=== PATIENT | male | born 1955 | race Caucasian/White ===

== ENCOUNTER 2016-11-29 10:42 | Outpatient (CLI) | payer OTHER ==
[2016-11-29 11:22] LABS: eGFR (African) > 60; eGFR (Non-African) > 60
== END 2016-11-29 10:43 ==
LOC: LAB 10:42
PROVIDERS: ATTEND Family Medicine
DX: E11.9 Type 2 diabetes mellitus without complications (principal); L60.3 Nail dystrophy; I10 Essential (primary) hypertension; E78.00 Pure hypercholesterolemia, unspecified
CPT/HCPCS: 36415; 80053; 80061; 83036

== ENCOUNTER 2016-12-17 15:01 | Outpatient (CLI) | payer OTHER | END 2016-12-17 15:02 | LOC: POD 15:01 | PROVIDERS: ATTEND Podiatrist | DX: E11.42 Type 2 diabetes mellitus with diabetic polyneuropathy (principal); G60.3 Idiopathic progressive neuropathy; B35.1 Tinea unguium | CPT/HCPCS: 99213 ==

== ENCOUNTER 2017-03-21 10:52 | Outpatient (CLI) | payer OTHER ==
[2017-03-21 11:36] LABS: eGFR (African) > 60; eGFR (Non-African) > 60
== END 2017-03-21 10:53 ==
LOC: LAB 10:52
PROVIDERS: ATTEND Family Medicine
DX: E11.9 Type 2 diabetes mellitus without complications (principal); I10 Essential (primary) hypertension
CPT/HCPCS: 36415; 80048; 83036

== ENCOUNTER 2017-11-21 08:26 | Outpatient (CLI) | payer OTHER ==
[2017-11-24 13:54] LABS: BASO % 0.4; EOS % 1.9; MCH. 28.1; MCV 84.3; MONOCYTE % 7.4; MONOCYTE ABS # 0.54; PLATELET COUNT 178
[2017-11-24 13:55] LABS: TOTAL PROTEIN 7.4
== END 2017-11-21 08:27 ==
LOC: LAB 08:26
PROVIDERS: ATTEND Family Medicine
DX: E11.9 Type 2 diabetes mellitus without complications (principal); E78.00 Pure hypercholesterolemia, unspecified; I10 Essential (primary) hypertension
CPT/HCPCS: 36415; 80053; 80061; 83036; 85025

== ENCOUNTER 2018-03-27 13:19 | Outpatient (CLI) | payer OTHER ==
[2018-03-27 14:41] LABS: eGFR (Non-African) > 60
== END 2018-03-27 14:24 ==
LOC: LABRHC 13:19
PROVIDERS: ATTEND Family Medicine
DX: E11.9 Type 2 diabetes mellitus without complications (principal)
CPT/HCPCS: 80053; 83036

== ENCOUNTER 2018-05-16 11:27 | Outpatient (CLI) | payer OTHER ==
[2018-05-16 12:15] LABS: eGFR (Non-African) > 60
== END 2018-05-16 11:30 ==
LOC: LABRHC 11:27
PROVIDERS: ATTEND Family Medicine
DX: E87.5 Hyperkalemia (principal)
CPT/HCPCS: 80048